=== PATIENT | male | born 1945 | race Caucasian/White ===

== ENCOUNTER 2022-10-07 01:50 | Inpatient (IN) | payer OTHER ==
[~2022-10-07] VITALS: Ht 170.2 cm; Wt 71.2 kg
[~2022-10-07 01:50] MED LIST: AMOX875T3 PO; ATOR20TA50 PO; FIN5T PO; INSLANTI SC; INSREGI SC; LEV112T PO; TAM04C PO
[2022-10-07 03:12] LABS: Hemoglobin 11.6 g/dL (13.5-17.5)
[2022-10-07 03:14] LABS: Hematocrit 36.1 % (41.0-53.0); Mean Corpuscular Hemoglobin 28.9 pg (28.0-32.0); Mean Corpuscular Hgb Conc. 32.1 g/dL (32.0-36.0); Red Blood Cells 4.01 10^6/uL (4.5-5.90); Red Cell Distribution Width 15.5 % (11.8-14.3)
[2022-10-07 03:22] LABS: INR 0.97 (0.9-1.15)
[2022-10-07 03:26] LABS: BUN/Creatinine Ratio 19.8; Calcium 9.6 mg/dL (8.5-10.1); Potassium 3.7 mmol/L (3.5-5.1); White Blood Cell 46.4 10^3/uL (4.4-10.8)
[2022-10-07 03:28] LABS: Basophils % (manual) 0 (0.0-2.0); Bilirubin, Total 0.6 mg/dL (0.2-1.0); Blast Cells 0; Eosinophils % (manual) 0 (0-7); Metamyelocytes % 0; Myelocytes % 0; Promyelocytes % 0; Reactive Lymphocytes 0; Total Protein 7.2 g/dL (6.4-8.2)
[2022-10-07 03:54] LABS: Band Neutrophils % (manual) 2; Lymphocytes % (manual) 79 (10.0-50.0); Monocytes % (manual) 3 (0-12)
[2022-10-07] MEDS ORDERED: cefTRIAXone SOD 1,000 MG VL IM ONE (05:30)
[2022-10-07] MEDS ORDERED: cefTRIAXone 1GM/50ML D5W 50 ML IV ONE (06:15)
[2022-10-07] MEDS ORDERED: ONDANSETRON HCL 4 MG/2 ML VIAL IV PRN (10:15)
[2022-10-07] MEDS ORDERED: MORPHINE SULFATE INJ 2 MG/ml SYRG IV PRN (10:15)
[2022-10-07] MEDS ORDERED: ACETAMINOPHEN 325 MG TAB PO PRN (10:15)
[2022-10-07] MEDS ORDERED: HYDROcodone-ACET 5/325MG TAB PO PRN (10:15)
[2022-10-07] MEDS ORDERED: DOCUSATE SOD 100 MG CAP PO PRN (10:15)
[2022-10-07] MEDS ORDERED: DEXTROSE (50%) 50ML SYRG IV PRN (10:15)
[2022-10-07] MEDS: ACCU-CHEK COMFORT CURVE STRIP VI SCH ×3 (12:00→20:00)
[2022-10-07] MEDS: InsuLIN REG 1unit/0.01ml Soln (100units/ml) SC SCH ×3 (12:36→21:50)
[2022-10-08] VITALS (8 sets, daily range): BP systolic 93–117; BP diastolic 52–70
[2022-10-08] MEDS: ACCU-CHEK COMFORT CURVE STRIP VI SCH ×7 (00:57→20:30)
[2022-10-08] MEDS: InsuLIN REG 1unit/0.01ml Soln (100units/ml) SC SCH ×7 (01:24→20:45)
[2022-10-08 05:47] LABS: Mean Corpuscular Hgb Conc. 32.7 g/dL (32.0-36.0)
[2022-10-08 05:52] LABS: Hematocrit 29.7 % (41.0-53.0); Hemoglobin 9.7 g/dL (13.5-17.5); Mean Corpuscular Volume 88.9 fL (80.0-100.0); Red Blood Cells 3.34 10^6/uL (4.5-5.90); Red Cell Distribution Width 15.5 % (11.8-14.3)
[2022-10-08 06:01] LABS: White Blood Cell 36.2 10^3/uL (4.4-10.8)
[2022-10-08 06:02] LABS: Band Neutrophils % (manual) 0; Basophils % (manual) 0 (0.0-2.0); Blast Cells 0; Eosinophils % (manual) 0 (0-7); Metamyelocytes % 0; Myelocytes % 0; Promyelocytes % 0
[2022-10-08 06:27] LABS: Albumin 3.3 g/dL (3.4-5.0); BUN/Creatinine Ratio 30.4; Bilirubin, Total 0.6 mg/dL (0.2-1.0); Calcium 8.8 mg/dL (8.5-10.1); Total Protein 6.1 g/dL (6.4-8.2)
[2022-10-08 07:17] LABS: Lymphocytes % (manual) 72 (10.0-50.0); Monocytes % (manual) 2 (0-12); Reactive Lymphocytes 11
[2022-10-08] MEDS ORDERED: TAMS0.4C36 PO ×2 (07:43→07:46)
[2022-10-08] MEDS ORDERED: GLIP10TA9 PO (07:46)
[2022-10-08] MEDS ORDERED: METF-370 PO (07:47)
[2022-10-08] MEDS ORDERED: FERR-20 PO (07:48)
[2022-10-08] MEDS ORDERED: EMPA1TAB3 PO (07:48)
[2022-10-08] MEDS ORDERED: ONDANSETRON HCL 4 MG/2 ML VIAL ONE (15:22)
[2022-10-08] MEDS ORDERED: MIDAZOLAM HCL 2MG/2ML 2ml VIAL (1mg/ml) ONE (15:22)
[2022-10-08] MEDS ORDERED: fentaNYL CITRATE 100 MCG/2 ML VL ONE (15:22)
[2022-10-08] MEDS ORDERED: DexAMETHasone SOD PHOS 10MG/1ML VIAL INJ ONE (15:22)
[2022-10-08] MEDS ORDERED: SODIUM CHLORIDE LOCK 10 ML ONE (15:22)
[2022-10-08] MEDS ORDERED: ETOMIDATE (2MG/ML) 20ML VIAL IV ONE (15:22)
[2022-10-08] MEDS ORDERED: ROCURONIUM 10MG/ML 10ML VIAL IV ONE (15:22)
[2022-10-08] MEDS ORDERED: ceFAZolin 1GM VL ONE (15:40)
[2022-10-08] MEDS ORDERED: ACCU-CHEK COMFORT CURVE STRIP VI ONE (15:45)
[2022-10-08] MEDS ORDERED: ONDANSETRON HCL 4 MG/2 ML VIAL IV PRN (15:45)
[2022-10-08] MEDS ORDERED: MORPHINE SULFATE INJ 2 MG/ml SYRG IV PRN (15:45)
[2022-10-08] MEDS ORDERED: HYDROmorphone HCL 2 MG/ML VL/or syr IV PRN ×2 (15:45)
[2022-10-08] MEDS: ceFAZolin 1GM/50ML 50 ML IV SCH (21:41)
[2022-10-09] MEDS: ACCU-CHEK COMFORT CURVE STRIP VI SCH ×6 (00:22→20:43)
[2022-10-09] MEDS: InsuLIN REG 1unit/0.01ml Soln (100units/ml) SC SCH ×6 (00:31→20:49)
[2022-10-09 05:00] VITALS: BP 93/60
[2022-10-09] MEDS: ceFAZolin 1GM/50ML 50 ML IV SCH ×3 (05:12→20:58)
[2022-10-09 09:00] VITALS: BP_SYST 101; BP_SYST 105; BP_DIAS 54; BP_DIAS 61
[2022-10-09 13:00] VITALS: BP 105/54
[2022-10-09 17:00] VITALS: BP 110/62
[2022-10-09 22:00] VITALS: BP 112/69
[2022-10-10] MEDS: ACCU-CHEK COMFORT CURVE STRIP VI SCH ×6 (00:14→20:21)
[2022-10-10] MEDS: InsuLIN REG 1unit/0.01ml Soln (100units/ml) SC SCH ×6 (04:00→20:24)
[2022-10-10 05:00] VITALS: BP 109/70
[2022-10-10] MEDS: ceFAZolin 1GM/50ML 50 ML IV SCH (05:14)
[2022-10-10 07:40] LABS: Hemoglobin 10.1 g/dL (13.5-17.5)
[2022-10-10 07:41] LABS: Hematocrit 31.1 % (41.0-53.0); Mean Corpuscular Hemoglobin 29.1 pg (28.0-32.0); Mean Corpuscular Hgb Conc. 32.5 g/dL (32.0-36.0); Mean Corpuscular Volume 89.6 fL (80.0-100.0); Red Blood Cells 3.47 10^6/uL (4.5-5.90); Red Cell Distribution Width 15.3 % (11.8-14.3)
[2022-10-10 07:53] LABS: BUN/Creatinine Ratio 24.3; Calcium 8.7 mg/dL (8.5-10.1); Magnesium 2.1 mg/dL (1.6-2.6); Potassium 4.4 mmol/L (3.5-5.1)
[2022-10-10 08:36] LABS: Band Neutrophils % (manual) 0; Basophils % (manual) 0 (0.0-2.0); Blast Cells 0; Eosinophils % (manual) 0 (0-7); Metamyelocytes % 0; Myelocytes % 0; Promyelocytes % 0; Reactive Lymphocytes 0
[2022-10-10 09:00] VITALS: BP 96/59
[2022-10-10 10:49] LABS: Lymphocytes % (manual) 66 (10.0-50.0); Monocytes % (manual) 4 (0-12)
[2022-10-10 13:00] VITALS: BP 96/56
[2022-10-10] MEDS ORDERED: LORazepam 2MG/ML-1ML VIAL IV PRN (16:45)
[2022-10-10 17:00] VITALS: BP 111/74
[2022-10-10] MEDS: PIPERACILLIN-TAZOB 3.375GM 100 ML IV SCH (17:31)
[2022-10-10] MEDS ORDERED: QUEtiapine FUMARATE 25 MG TAB PO SCH (18:00)
[2022-10-11] MEDS: TEMAZEPAM 15 MG CAP PO PRN
[2022-10-11] MEDS ORDERED: VANCOMYCIN 750mg/250ml 250 ML IV SCH (03:00)
[2022-10-11] MEDS: InsuLIN REG 1unit/0.01ml Soln (100units/ml) SC SCH ×5 (04:00→16:17)
[2022-10-11] MEDS: PIPERACILLIN-TAZOB 3.375GM 100 ML IV SCH ×5 (06:43→23:31)
[2022-10-11] MEDS: ACCU-CHEK COMFORT CURVE STRIP VI SCH ×7 (06:44→21:45)
[2022-10-11 09:00] VITALS: BP 102/61
[2022-10-11 09:12] LABS: Hematocrit 32.8 % (41.0-53.0); Hemoglobin 10.9 g/dL (13.5-17.5); Mean Corpuscular Hemoglobin 29.9 pg (28.0-32.0); Mean Corpuscular Hgb Conc. 33.3 g/dL (32.0-36.0); Mean Corpuscular Volume 89.8 fL (80.0-100.0); Red Blood Cells 3.65 10^6/uL (4.5-5.90); Red Cell Distribution Width 15.7 % (11.8-14.3)
[2022-10-11 09:17] LABS: Band Neutrophils % (manual) 0; Basophils % (manual) 0 (0.0-2.0); Blast Cells 0; Eosinophils % (manual) 0 (0-7); Metamyelocytes % 0; Myelocytes % 0; Promyelocytes % 0; Reactive Lymphocytes 0; White Blood Cell 33.3 10^3/uL (4.4-10.8)
[2022-10-11 09:31] LABS: Calcium 8.8 mg/dL (8.5-10.1); Potassium 4.2 mmol/L (3.5-5.1)
[2022-10-11 09:51] LABS: Lymphocytes % (manual) 74 (10.0-50.0); Monocytes % (manual) 1 (0-12)
[2022-10-11 13:00] VITALS: BP 123/62
[2022-10-11] MEDS ORDERED: VANCOMYCIN 1GM/250ML 250 ML IV ONE (15:30)
[2022-10-11] MEDS ORDERED: VANCOMYCIN PER PHARMACY 0 MG IV SCH (15:30)
[2022-10-11] MEDS ORDERED: DEXTROSE (50%) 50ML SYRG IV PRN (15:45)
[2022-10-11 22:00] VITALS: BP 98/67
[2022-10-11] MEDS ORDERED: INSULIN LANTUS (GLARGINE) 1 /0.01ml (100units/ml) SC SCH (22:00)
[2022-10-11] MEDS ORDERED: InsuLIN REG 1unit/0.01ml Soln (100units/ml) SC SCH (22:00)
[2022-10-12] MEDS: TEMAZEPAM 15 MG CAP PO PRN (01:45)
[2022-10-12] MEDS ORDERED: VANCOMYCIN 750mg/250ml 250 ML IV SCH (03:00)
[2022-10-12] MEDS: PIPERACILLIN-TAZOB 3.375GM 100 ML IV SCH ×2 (05:45→12:23)
[2022-10-12 05:55] LABS: Hematocrit 30.2 % (41.0-53.0); Hemoglobin 9.9 g/dL (13.5-17.5); Mean Corpuscular Hemoglobin 29.3 pg (28.0-32.0); Mean Corpuscular Hgb Conc. 32.8 g/dL (32.0-36.0); Mean Corpuscular Volume 89.4 fL (80.0-100.0); Red Blood Cells 3.38 10^6/uL (4.5-5.90); Red Cell Distribution Width 15.3 % (11.8-14.3)
[2022-10-12 06:02] LABS: Basophils % (manual) 0 (0.0-2.0); Blast Cells 0; Eosinophils % (manual) 0 (0-7); Metamyelocytes % 0; Myelocytes % 0; Promyelocytes % 0; Reactive Lymphocytes 0; White Blood Cell 33.8 10^3/uL (4.4-10.8)
[2022-10-12 06:13] LABS: BUN/Creatinine Ratio 24.3; Calcium 8.5 mg/dL (8.5-10.1); Potassium 4.6 mmol/L (3.5-5.1)
[2022-10-12] MEDS: ACCU-CHEK COMFORT CURVE STRIP VI SCH ×2 (06:23→11:30)
[2022-10-12] MEDS: InsuLIN REG 1unit/0.01ml Soln (100units/ml) SC SCH ×2 (06:23→12:30)
[2022-10-12 07:18] LABS: Urine Blood 3+ /uL (Negative); Urine Specific Gravity 1.011 (1.001-1.035)
[2022-10-12 09:01] VITALS: BP 95/64
[2022-10-12 09:58] LABS: Band Neutrophils % (manual) 20; Lymphocytes % (manual) 64 (10.0-50.0); Monocytes % (manual) 3 (0-12)
[2022-10-12 12:26] VITALS: BP 105/63
[2022-10-12] MEDS ORDERED: AMOX-277 PO (14:09)
== END 2022-10-12 16:35 | disposition home or self-care (01) | DRG 713 ==
LOC: ER 01:50 → EDBD 01:50 → OVERFLOW 10:18 → EAST 23:38
PROVIDERS: ADMIT Internal Medicine; ATTEND Internal Medicine
PROC: 0TCC8ZZ Extirpation of Matter from Bladder Neck, Via Natural or Artificial Opening Endoscopic (ICD-10-PCS; principal; 2022-10-08 15:43)
PROC: 0VT08ZZ Resection of Prostate, Via Natural or Artificial Opening Endoscopic (ICD-10-PCS; 2022-10-08 15:43)
DX: N40.1 Benign prostatic hyperplasia with lower urinary tract symptoms (principal); C91.10 Chronic lymphocytic leukemia of B-cell type not having achieved remission; R33.8 Other retention of urine; R31.0 Gross hematuria; E03.9 Hypothyroidism, unspecified; E11.9 Type 2 diabetes mellitus without complications; E78.5 Hyperlipidemia, unspecified; F02.80 Dementia in other diseases classified elsewhere, unspecified severity, without behavioral disturbance, psychotic disturbance, mood disturbance, and anxiety; Z20.822 Contact with and (suspected) exposure to COVID-19; G30.9 Alzheimer's disease, unspecified; I10 Essential (primary) hypertension; Z90.79 Acquired absence of other genital organ(s); Z79.4 Long term (current) use of insulin; Z82.0 Family history of epilepsy and other diseases of the nervous system; Z82.49 Family history of ischemic heart disease and other diseases of the circulatory system; Z83.3 Family history of diabetes mellitus
CPT/HCPCS: 36415; 70450; 71045; 71250; 74176; 80048; 80053; 81003; 82962; 83735; 84154; 84484; 85007; 85027; 85610; 86850; 86900; 86901; 87040; 87086; 87426; 96365; 96375; 97110; 97116; 97163; G0378; J0690; J0696; J1100; J1815; J2250; J2405; J2543